=== PATIENT | female | born 1950 | race Caucasian/White ===

== ENCOUNTER 2016-05-27 13:39 | Emergency (ER) | payer BC, OTHER ==
--- NOTE | 2016-05-27 14:42 | ED Physician Documentation ---
General Adult - HISTORIAN Historian: patient - HPI Stated Complaint: Flu-Like Symptoms Chief Complaint: General Adult Additional Information: Non-productive cough and feverr to 102 since 05/23. Tired. Bronchitis last year and pneumonia the year before. Takes car e of her and toddler grandchildren. - ROS CONST: fever CVS/RESP: shortness of breath (with exertion), cough - PAST HX Past History: other (see above) Allergies/Adverse Reactions: Allergies Allergy/AdvReac Type Severity Reaction Status Date / Time erythromycin base AdvReac Mild upset Verified 05/27/16 14:37 stomach Home Medications: Ambulatory Orders Medication Instructions Recorded NK [NK] 05/27/16 - SOCIAL HX Smoking History: non-smoker Drug Use: none - FAMILY HX Family History: No (no signif) - VITAL SIGNS Vital Signs: Vital Signs Temp Pulse Resp BP Pulse Ox 99.1 F 96 H 22 156/96 96 05/27/16 13:40 05/27/16 13:40 05/27/16 13:40 05/27/16 13:40 05/27/16 13:40 - REVIEWED ASSESSMENTS Nursing Assessment Reviewed: Yes Vitals Reviewed: Yes Progress - Progress Progress: 2 views of the chest History: 65/F PATIENT COMPLAINS OF BODY ACHES, CONGESTION, AND NON PRODUCTIVE COUGH X 5 DAYS; NO SURGERIES Top findings: Comparison: August 18 Heart is normal in size Biapical pleural thickening is present. No pleural effusion or pneumothorax Degenerative changes of the thoracic spine are present There is a patchy opacity in the right infrahilar region Impression: Right middle lobe patchy infiltrate Electronically signed on May 27, 2016 3:22:15 PM CDT by: Randee Denton ED Results Lab/Radiology - Orders Orders: ED Orders Category Date Time Status CHEST 2 VIEW [CHEST P.A.&LAT 2 VIEWS] [RAD] Stat Exams 05/27/16 Ordered GRP A STREP SCREEN Stat Lab 05/27/16 Ordered INFLUENZA A&B Stat Lab 05/27/16 Uncollected General Adult Physical Exam - PHYSICAL EXAM GENERAL APPEARANCE: mild distress EENT: eye inspection normal, ENT inspection normal, pharynx normal NECK: normal inspection, supple RESPIRATORY: breath sounds normal, other (bronchitic cough) CVS: reg rate & rhythm, heart sounds normal, no murmur ABDOMEN: soft, normal bowel sounds, non-tender RECTAL: deferred BACK: normal inspection SKIN: warm/dry, normal color EXTREMITIES: normal range of motion (gait), no evidence of injury NEURO: CN's nml as tested, motor nml, sensation nml, cognition normal Discharge Clincal Impression: Pneumonia Qualifiers: Pneumonia type: due to unspecified organism Laterality: right Lung location: middle lobe of lung Qualified Code(s): J18.1 - Lobar pneumonia, unspecified organism Home Medications: Ambulatory Orders NK [NK] 05/27/16 Condition: Fair Disposition: 01 HOME, SELF-CARE Decision to Admit: NO Decision Time: 15:33
[2016-05-27 15:48] VITALS: BP 153/96
--- NOTE | 2016-05-27 17:03 | Diagnostic Imaging Report ---
JAYLYN PANDEY~ [facility] [id number] [facility] [address] [place], [place]. [address] ~ ~ ~ ~ Report Submission Date: May 27, 2016 3:22:15 PM CDT Patient ~ Study Name: KAMALA ASCENCIO ~ Date: May 27, 2016 2:59:52 PM CDT ~ Modality Type: CR Gender: F ~ Description: CHEST : 54 ~ Institution: [facility] Physician: JAYLYN PANDEY ~ ~ ~ ~ 2 views of the chest History: 65/F PATIENT COMPLAINS OF BODY ACHES, CONGESTION, AND NON PRODUCTIVE COUGH X 5 DAYS; NO SURGERIES Top findings: Comparison: August 18 Heart is normal in size Biapical pleural thickening is present. No pleural effusion or pneumothorax Degenerative changes of the thoracic spine are present There is a patchy opacity in the right infrahilar region Impression: Right middle lobe patchy infiltrate ~ Electronically signed on May 27, 2016 3:22:15 PM CDT by: Randee NAZARIO
== END 2016-05-27 15:46 | disposition home or self-care (01) ==
LOC: ED 13:39
DX: J18.1 Lobar pneumonia, unspecified organism (principal)
CPT/HCPCS: 71020; 87070; 87400; 87880; 99283; 99284

== ENCOUNTER 2016-06-08 15:50 | Outpatient (CLI) | payer BC ==
[2016-06-08 16:39] LABS: EOSINOPHILS % 0.9 % (0.0-6.8); MEAN CORPUSCULAR VOLUME 87.5 fl (80.0-100.0); MONOCYTES % 5.8 % (0.0-11.0)
[2016-06-08 16:40] LABS: BASOPHILS % 0.5 (0.0-1.5); NEUTROPHILS # 5.2 # k/uL (1.4-7.7)
[2016-06-08 17:06] LABS: eGFR (African) > 60; eGFR (Non-African) > 60
== END 2016-06-08 15:52 ==
LOC: LAB 15:50
PROVIDERS: ATTEND Physician Assistant
DX: R53.83 Other fatigue (principal)
CPT/HCPCS: 36415; 80053; 85025

== ENCOUNTER 2016-09-05 10:52 | Outpatient (CLI) | payer BC | END 2016-09-05 10:53 | LOC: LAB 10:52 | PROVIDERS: ATTEND Family Medicine | DX: E78.00 Pure hypercholesterolemia, unspecified (principal); Z11.59 Encounter for screening for other viral diseases | CPT/HCPCS: 36415; 80061; 86803 ==

== ENCOUNTER → 2017-08-29 | Outpatient (CLI) | payer MEDICARE, OTHER ==
--- NOTE | 2017-08-29 20:19 | Diagnostic Imaging Report ---
[facility] [address] [facility].[address] [address] Report Submission Date: Aug 29, 2017 12:29:26 PM CDT Patient Study Name: KAMALA ASCENCIO Date: Aug 29, 2017 12:01:04 PM CDT Modality Type: DX Gender: F Description: CHEST : 54 Institution: [facility] Physician: KARON GALVAN Examination: PA and lateral chest. History: Evaluate lung acosta. CXR, FEVER, COUGH AND WHEEZING FOR ABOUT 6 DAYS , HX OF PNEUMONIA (Hx) Comparison exam: 27 May 2016 Findings: PA lateral chest demonstrate a normal cardiac and mediastinal silhouette. Mildly tortuous aorta. No focal infiltrate. No blunting of the costophrenic margins. Osseous structures are appropriate for age. Impression: No acute pulmonary process. Electronically signed on Aug 29, 2017 12:29:26 PM CDT by: Romain NAZARIO
== END ==
LOC: RAD 11:57
PROVIDERS: ATTEND Physician Assistant
DX: R06.2 Wheezing (principal); R50.81 Fever presenting with conditions classified elsewhere
CPT/HCPCS: 71046